=== PATIENT | male | born 1955 | race Caucasian/White ===

== ENCOUNTER → 2023-09-10 09:28 | Outpatient (REF) | payer MEDICARE, OTHER, SELFPAY ==
[2023-09-10 12:39] LABS: % Eosinophils 1.8 % (0-6); % Immature Granulocytes 0.4 % (0-0.5); % Lymphocytes 27.9 % (20.5-51.1); % Monocytes 7.4 % (1.7-9.3); % Neutrophils 61.5 % (42.2-75.2); Absolute Basophils 0.1 10^3/uL (0-0.2); Absolute Eosinophils 0.1 10^3/uL (0-0.7); Absolute Lymphocytes 1.4 10^3/uL (1.2-3.4); Absolute Monocytes 0.4 10^3/uL (0.1-0.6); Absolute Neutrophils 3.1 10^3/uL (1.4-6.5); Hematocrit 40.8 % (39.0-52.0); Hemoglobin 14.1 g/dL (13.0-18.0); Mean Corp Hgb Conc. 34.6 g/dL (33.0-37.0); Mean Corpuscular Hgb 29.7 pg (27.0-31.0); Mean Corpuscular Volume 85.9 fL (80.0-94.0); Mean Platelet Volume 10.5 fL (7.4-10.4); Nucleated Red Blood Cells % 0 % (-); Platelet Count 212 10^3/uL (130-400); Red Blood Cell Count 4.75 10^6/uL (4.70-6.10); Red Cell Dist. Width 12.6 % (11.5-14.5)
[2023-09-10 12:43] LABS: Urine Albumin Negative (Neg - Trace); Urine Bilirubin Negative (Negative); Urine Character Clear (Clear); Urine Color Yellow; Urine Glucose Negative (Negative); Urine Ketone Negative (Negative); Urine Leukocyte Negative (Negative); Urine Nitrite Negative (Negative); Urine Occult Blood Negative (Negative); Urine Urobilinogen Negative (Neg - 1+)
[2023-09-10 13:00] LABS: ALT (SGPT) 28 U/L (0-50); AST (SGOT) 25 U/L (17-59); Alkaline Phosphatase 69 U/L (38-126); Blood Urea Nitrogen 21 mg/dl (9-20); Calcium 8.7 mg/dl (8.4-10.2); Carbon Dioxide 28 mmol/L (22-30); Chloride 104 mmol/L (98-107); Creatine Phosphokinase 107 U/L (55-170); Glucose 102 mg/dl (70-99); HDL Cholesterol 56 mg/dl; LDL Cholesterol, Calculated 103 mg/dl; Magnesium 2.2 mg/dl (1.6-2.3); Phosphorus 4.1 mg/dl (2.5-4.5); Potassium 4.2 mmol/L (3.5-5.1); Sodium 136 mmol/L (135-145); Total Bilirubin 1.6 mg/dl (0.2-1.3); Total Cholesterol 175 mg/dl (50-199); Total Protein 6.4 g/dl (6.3-8.2); Triglyceride 83 mg/dl (10-149); Uric Acid 6.2 mg/dl (3.5-8.5); Very Low Density Lipoprotein 16 mg/dl (0-30); eGFR > 60.00
[2023-09-10 13:12] LABS: Free T4 0.93 ng/dl (0.78-2.19)
[2023-09-10 13:26] LABS: PSA, Total - Screen 2.43 ng/ml (0.0-4.0); TSH 1.99 uIU/ml (0.47-4.68)
[2023-09-10 17:42] LABS: Lyme Antibody Screen, EIA Negative (Negative)
== END ==
LOC: HWLAB 09:28
PROVIDERS: ATTENDING PHYSICIAN Family Medicine
DX: E07.9 Disorder of thyroid, unspecified (principal); Z12.5 Encounter for screening for malignant neoplasm of prostate; I10 Essential (primary) hypertension; E78.9 Disorder of lipoprotein metabolism, unspecified; W57.XXXA Bitten or stung by nonvenomous insect and other nonvenomous arthropods, initial encounter
CPT/HCPCS: 36415; 80053; 80061; 81003; 82550; 83735; 84100; 84439; 84443; 84550; 85025; 86618; G0103

== ENCOUNTER → 2023-09-29 07:33 | Outpatient (REF) | payer MEDICARE, OTHER, SELFPAY | LOC: HWRAD 07:33 | PROVIDERS: ATTENDING PHYSICIAN Family Medicine | DX: K76.9 Liver disease, unspecified (principal); R91.1 Solitary pulmonary nodule | CPT/HCPCS: 71250; 76536; 76700 ==

== ENCOUNTER → 2024-10-21 08:05 | Outpatient (REF) | payer MEDICARE, OTHER, SELFPAY ==
[2024-10-21 09:39] LABS: Urine Albumin Negative (Neg - Trace); Urine Bilirubin Negative (Negative); Urine Character Clear (Clear); Urine Color Yellow; Urine Glucose Negative (Negative); Urine Ketone Negative (Negative); Urine Leukocyte Negative (Negative); Urine Nitrite Negative (Negative); Urine Occult Blood Negative (Negative); Urine Specific Gravity 1.015 (<1.030); Urine Urobilinogen Negative (Neg - 1+)
[2024-10-21 09:39] LABS: % Basophils 0.7 % (0-2); % Eosinophils 2.6 % (0-6); % Immature Granulocytes 0.2 % (0-0.5); % Lymphocytes 31.5 % (20.5-51.1); % Monocytes 7.2 % (1.7-9.3); % Neutrophils 57.8 % (42.2-75.2); Absolute Eosinophils 0.1 10^3/uL (0-0.7); Absolute Lymphocytes 1.4 10^3/uL (1.2-3.4); Absolute Monocytes 0.3 10^3/uL (0.1-0.6); Absolute Neutrophils 2.6 10^3/uL (1.4-6.5); Hemoglobin 13.3 g/dL (13.0-18.0); Mean Corp Hgb Conc. 34.1 g/dL (33.0-37.0); Mean Platelet Volume 10.4 fL (7.4-10.4); Nucleated Red Blood Cells % 0 % (-); Platelet Count 194 10^3/uL (130-400); Red Blood Cell Count 4.43 10^6/uL (4.70-6.10); Red Cell Dist. Width 13.3 % (11.5-14.5); White Blood Cell Count 4.6 10^3/uL (4.8-10.8)
[2024-10-21 09:50] LABS: ALT (SGPT) 22 U/L (0-50); AST (SGOT) 19 U/L (17-59); Albumin 3.9 g/dl (3.5-5.0); Alkaline Phosphatase 70 U/L (38-126); Alkaline Phosphatase, Total 70 U/L (38-126); Blood Urea Nitrogen 22 mg/dl (9-20); Calcium 9.1 mg/dl (8.4-10.2); Carbon Dioxide 26 mmol/L (22-30); Chloride 105 mmol/L (98-107); Creatine Phosphokinase 142 U/L (55-170); Direct Bilirubin 0.1 mg/dl (0.0-0.4); Glucose 93 mg/dl (70-99); HDL Cholesterol 64 mg/dl; LDL Cholesterol, Calculated 88 mg/dl; Phosphorus 3.8 mg/dl (2.5-4.5); Potassium 4.1 mmol/L (3.5-5.1); Sodium 136 mmol/L (135-145); Total Bilirubin 1.8 mg/dl (0.2-1.3); Total Cholesterol 164 mg/dl (50-199); Total Protein 6.2 g/dl (6.3-8.2); Triglyceride 64 mg/dl (10-149); Uric Acid 5.9 mg/dl (3.5-8.5); Very Low Density Lipoprotein 12 mg/dl (0-30); eGFR > 60.00
[2024-10-21 10:04] LABS: Vitamin D, 25-OH*** 44.3 ng/mL (30-80)
[2024-10-21 10:17] LABS: PSA, Total - Screen 2.39 ng/ml (0.0-4.0); TSH 2.49 uIU/ml (0.47-4.68)
[2024-10-21 15:24] LABS: Alk Phos After Heat 48; Alkaline Phosphatase Percent 68.57
[2024-10-23 02:13] LABS: ANA, IgG Reflex to HEp-2 None Detected (None Detected)
== END ==
LOC: HWRAD 08:05
PROVIDERS: ATTENDING PHYSICIAN Family Medicine
DX: R91.1 Solitary pulmonary nodule (principal); Z12.5 Encounter for screening for malignant neoplasm of prostate; R17 Unspecified jaundice; R74.8 Abnormal levels of other serum enzymes; W57.XXXA Bitten or stung by nonvenomous insect and other nonvenomous arthropods, initial encounter; E07.9 Disorder of thyroid, unspecified; R79.89 Other specified abnormal findings of blood chemistry; R76.8 Other specified abnormal immunological findings in serum; I10 Essential (primary) hypertension; E78.9 Disorder of lipoprotein metabolism, unspecified; D72.818 Other decreased white blood cell count
CPT/HCPCS: 36415; 71250; 80053; 80061; 81003; 82248; 82306; 82550; 83735; 84078; 84100; 84439; 84443; 84550; 85025; 86038; 86618; G0103

== ENCOUNTER → 2025-01-09 15:16 | Outpatient (REF) | payer MEDICARE, OTHER, SELFPAY | LOC: RCS 15:16 | PROVIDERS: ATTENDING PHYSICIAN Family Medicine | DX: R06.02 Shortness of breath (principal) | CPT/HCPCS: 93017 ==

== ENCOUNTER → 2025-04-07 08:43 | Outpatient (REF) | payer MEDICARE, OTHER, SELFPAY ==
[2025-04-07 12:21] LABS: Hematocrit 38.5 % (39.0-52.0); Hemoglobin 13.4 g/dL (13.0-18.0); Mean Corp Hgb Conc. 34.8 g/dL (33.0-37.0); Mean Corpuscular Volume 87.1 fL (80.0-94.0); Nucleated Red Blood Cells % 0 % (-); Platelet Count 182 10^3/uL (130-400); Red Cell Dist. Width 12.4 % (11.5-14.5)
[2025-04-07 12:43] LABS: ALT (SGPT) 24 U/L (0-50); AST (SGOT) 21 U/L (17-59); Albumin 4.2 g/dl (3.5-5.0); Alkaline Phosphatase 69 U/L (38-126); Blood Urea Nitrogen 23 mg/dl (9-20); Calcium 9.0 mg/dl (8.4-10.2); Carbon Dioxide 27 mmol/L (22-30); Chloride 106 mmol/L (98-107); Glucose 97 mg/dl (70-99); HDL Cholesterol 57 mg/dl; LDL Cholesterol, Calculated 109 mg/dl; Potassium 4.1 mmol/L (3.5-5.1); Sodium 138 mmol/L (135-145); Total Protein 6.4 g/dl (6.3-8.2); Very Low Density Lipoprotein 14 mg/dl (0-30); eGFR 59.47
== END ==
LOC: HWLAB 08:43
PROVIDERS: ATTENDING PHYSICIAN Family Medicine
DX: I10 Essential (primary) hypertension (principal); D72.9 Disorder of white blood cells, unspecified
CPT/HCPCS: 36415; 80053; 80061; 85025